=== PATIENT | female | born 1980 | race Caucasian/White ===

== ENCOUNTER 2018-08-14 14:04 | Emergency (ER) | payer BC ==
[2018-08-14] MEDS ORDERED: SODIUM CHLORIDE 0.9% 1,000 ML IV STA (14:31)
[2018-08-14 14:56] LABS: Basophils % (A) 0 %; Eosinophils # (A) 0.1 k/uL (0-0.7); Eosinophils % (A) 1 %; HCT 34.8 % (34.0-46.0); HGB 11.1 gm/dL (11.4-16.0); Lymphocytes # (A) 1.7 k/uL (1.0-4.8); Lymphocytes % (A) 16 %; MCH 25.2 pg (25.0-35.0); MCHC 31.8 g/dL (31.0-37.0); MCV 79.1 fL (80.0-100.0); Mean Platelet Volume 7.4; Monocytes # (A) 0.5 k/uL (0-1.0); Monocytes % (A) 4 %; Neutrophils # (A) 8.4 k/uL (1.3-7.7); Neutrophils % (A) 77 %; Platelet Count 222 k/uL (150-450); RDW 14.3 % (11.5-15.5); WBC 10.9 k/uL (3.8-10.6)
[2018-08-14 15:00] LABS: Appearance,Urine Cloudy (Clear); Bacteria,Urine Rare /hpf; Bilirubin,Urine Negative (Negative); Blood,Urine Negative (Negative); Color,Urine Yellow; Glucose,Urine (UA) Negative (Negative); Ketones,Urine Negative (Negative); Leukocyte Esterase,Urine Small (Negative); Mucus,Urine Rare /hpf; Nitrite,Urine Negative (Negative); Protein,Urine Trace (Negative); RBC,Urine 3 /hpf (0-5); Specific Gravity,Urine 1.024 (1.001-1.035); Squamous Epithelial Cell,Urine 52 /hpf (0-4); Urobilinogen,Urine <2.0 mg/dL (<2.0); WBC,Urine 1 /hpf (0-5)
[2018-08-14 15:01] LABS: ALT 23 U/L (9-52); AST 24 U/L (14-36); Albumin 3.9 g/dL (3.5-5.0); Alkaline Phosphatase 75 U/L (38-126); Amylase 120 U/L (30-110); Anion Gap 7 mmol/L; Blood Urea Nitrogen 13 mg/dL (7-17); Calcium 9.4 mg/dL (8.4-10.2); Carbon Dioxide 23 mmol/L (22-30); Chloride 105 mmol/L (98-107); Glucose 106 mg/dL (74-99); Lipase 123 U/L (23-300); Potassium 4.1 mmol/L (3.5-5.1); Sodium 135 mmol/L (137-145); Total Bilirubin 0.2 mg/dL (0.2-1.3); Total Protein 6.8 g/dL (6.3-8.2)
--- NOTE | 2018-08-14 16:43 | US ---
EXAMINATION TYPE: US kidneys/renal and bladder DATE OF EXAM: 08/14/2018 COMPARISON: NONE CLINICAL HISTORY: Pain. Left pelvic pain radiating to left flank today; 14 weeks via invitro fertilization from eggs harvested from left ovary, prior renal stones, and hematuria per patient EXAM MEASUREMENTS: Right Kidney: 11.0 x 5.4 x 4.3 cm Left Kidney: 11.0 x 5.4 x 4.8 cm Post Void Residual Volume: not assessed on EC patient Right Kidney: prominent renal pelvis at 1.6cm, no hydronephrosis seen Left Kidney: No hydronephrosis or masses seen Bladder: bladder displacement from prominent left ovary is noted Bilateral Jets seen: yes Incidental findings: couple of gallbladder stones are seen within gallbladder; prominent left ovary = 3.0 x 3.2 x 2.8cm with arterial and venous PW Doppler waveforms and color flow is document. Left ova ry assessment is area of patient's pain that began this morning. IMPRESSION: No evidence of renal stone or obstruction. Gallstones are noted.
--- NOTE | 2018-08-14 18:29 | ED ---
General Adult HPI - General Chief complaint: Abdominal Pain Stated complaint: 14 weeks , pelvic pain, L side pain Time Seen by Provider: 08/14/18 14:31 Source: patient, RN notes reviewed Mode of arrival: ambulatory Limitations: no limitations - History of Present Illness Initial comments: 38-year-old female early 14 weeks by IVF presents to the emergency department for a chief complaint of left side pain. Patient states that this started this morning. Patient states it feels like a kidney stone that she has had in the past. Patient is denying any pelvic or abdominal pain. Denies any vaginal bleeding. Denies any dysuria. Patient denies any nausea and vomiting besides her morning sickness that she has had consistently. No diarrhea. No fevers or chills. Patient states she has been tested for gonorrhea and chlamydia which have been negative. Patient denies noticing any gross hematuria. Patient has no other complaints at this time including shortness of breath, chest pain, abdominal pain, nausea or vomiting, headache, or visual changes. - Related Data Home Medications Medication Instructions Recorded Confirmed Ergocalciferol [Vitamin D2] 50,000 unit PO FR 08/14/18 08/14/18 FLUoxetine HCL [PROzac] 20 mg PO DAILY 08/14/18 08/14/18 Ferrous Sulfate [Feosol] 325 mg PO HS 08/14/18 08/14/18 Pnv No.95/Ferrous Fum/Folic AC 1 tab PO DAILY 08/14/18 08/14/18 [ Multivitamin Tablet] Allergies Allergy/AdvReac Type Severity Reaction Status Date / Time No Known Allergies Allergy Verified 08/14/18 14:16 Review of Systems ROS Statement: Those systems with pertinent positive or pertinent negative responses have been documented in the HPI. ROS Other: All systems not noted in ROS Statement are negative. Past Medical History Additional Past Medical History / Comment(s): kidney stones History of Any Multi-Drug Resistant Organisms: None Reported Past Surgical History: Breast Surgery, Tonsillectomy Additional Past Surgical History / Comment(s): breast implants, abdominoplasty Past Psychological History: No Psychological Hx Reported Smoking Status: Never smoker Past Alcohol Use History: None Reported Past Drug Use History: None Reported General Exam Limitations: no limitations General appearance: alert, in no apparent distress Head exam: Present: atraumatic, normocephalic, normal inspection Eye exam: Present: normal appearance, PERRL, EOMI. Absent: scleral icterus, conjunctival injection, periorbital swelling ENT exam: Present: normal exam, mucous membranes moist Neck exam: Present: normal inspection, full ROM. Absent: tenderness, meningismus, lymphadenopathy Respiratory exam: Present: normal lung sounds bilaterally. Absent: respiratory distress, wheezes, rales, rhonchi, stridor Cardiovascular Exam: Present: regular rate, normal rhythm, normal heart sounds. Absent: systolic murmur, diastolic murmur, rubs, gallop, clicks GI/Abdominal exam: Present: soft, normal bowel sounds. Absent: distended, tenderness (No tenderness noted of the abdomen), guarding, rebound, rigid External exam: Present: normal external exam. Absent: erythema, swelling, lesions, lacerations Speculum exam: Present: normal speculum exam, vaginal discharge (Minimal amount of vaginal discharge, likely patient's norm). Absent: erythema, cervical discharge, vaginal bleeding, foreign body, tissue, laceration By manual exam: Present: normal by manual exam. Absent: cervical motion tenderness, adnexal tenderness, adnexal mass, uterine enlargement, uterine tenderness Back exam: Absent: CVA tenderness (R), CVA tenderness (L) Neurological exam: Present: alert, oriented X3, CN II-XII intact Psychiatric exam: Present: normal affect, normal mood Course Vital Signs 08/14/18 08/14/18 14:06 18:59 Temperature 98.4 F 98.2 F Pulse Rate 73 69 Respiratory 18 16 Rate Blood Pressure 134/88 125/68 O2 Sat by Pulse 100 100 Oximetry Medical Decision Making - Medical Decision Making 38-year-old female currently 14 weeks by IVF presents to the emergency department for a chief complaint of left side and back pain. Patient states this started this morning. Patient denies any pelvic or abdominal pain. Denies any vaginal bleeding or vaginal discharge. On exam patient does not have any abdominal tenderness. No CVA tenderness. No adnexal tenderness on pelvic. Patient does have a confirmed intrauterine . Patient again stresses that this does feel like a kidney stone which she has had before. Patient has had a confirmed intrauterine and not having any pelvic pain we did decide to do an ultrasound KUB and then obtain heart tones. heart tones were obtained at 160. CBC shows a white blood cell count 10.9, likely reactive. CMP unremarkable. Urine shows 3 red blood cells. No evidence of in fection. It does show 52 squamous cells, likely skin contaminant. Ultrasound shows no hydronephrosis or masses seen of the left ovary. There is an incidental finding of a prominent left ovary of 3.0 x 3.2 x 2.8 cm with Doppler. At this time Dr. Rees Spoke with Dr. Anglin. At this time Dr. Anglin recommends discharge home. Patient will follow up with her in the next one to 2 days and return here if she has any worsening symptoms. - Lab Data Result diagrams: 08/14/18 14:44 08/14/18 14:44 Lab Results 08/14/18 08/14/18 08/14/18 Range/Units 14:44 14:44 14:44 WBC 10.9 H (3.8-10.6) k/uL RBC 4.40 (3.80-5.40) m/uL Hgb 11.1 L (11.4-16.0) gm/dL Hct 34.8 (34.0-46.0) % MCV 79.1 L (80.0-100.0) fL MCH 25.2 (25.0-35.0) pg MCHC 31.8 (31.0-37.0) g/dL RDW 14.3 (11.5-15.5) % Plt Count 222 (150-450) k/uL Neutrophils % 77 % Lymphocytes % 16 % Monocytes % 4 % Eosinophils % 1 % Basophils % 0 % Neutrophils # 8.4 H (1.3-7.7) k/uL Lymphocytes # 1.7 (1.0-4.8) k/uL Monocytes # 0.5 (0-1.0) k/uL Eosinophils # 0.1 (0-0.7) k/uL Basophils # 0.0 (0-0.2) k/uL Sodium 135 L (137-145) mmol/L Potassium 4.1 (3.5-5.1) mmol/L Chloride 105 (98-107) mmol/L Carbon Dioxide 23 (22-30) mmol/L Anion Gap 7 mmol/L BUN 13 (7-17) mg/dL Creatinine 0.53 (0.52-1.04) mg/dL Est GFR (CKD-EPI)AfAm >90 (>60 ml/min/1.73 sqM) Est GFR (CKD-EPI)NonAf >90 (>60 ml/min/1.73 sqM) Glucose 106 H (74-99) mg/dL Calcium 9.4 (8.4-10.2) mg/dL Total Bilirubin 0.2 (0.2-1.3) mg/dL AST 24 (14-36) U/L ALT 23 (9-52) U/L Alkaline Phosphatase 75 (38-126) U/L Total Protein 6.8 (6.3-8.2) g/dL Albumin 3.9 (3.5-5.0) g/dL Amylase 120 H (30-110) U/L Lipase 123 (23-300) U/L Urine Color Urine Appearance (Clear) Urine pH (5.0-8.0) Ur Specific [place] (1.001-1.035) Urine Protein (Negative) Urine Glucose (UA) (Negative) Urine Ketones (Negative) Urine Blood (Negative) Urine Nitrite (Negative) Urine Bilirubin (Negative) Urine Urobilinogen (<2.0) mg/dL Ur Leukocyte Esterase (Negative) Urine RBC (0-5) /hpf Urine WBC (0-5) /hpf Ur Squamous Epith Cells (0-4) /hpf Urine Bacteria (None) /hpf Urine Mucus (None) /hpf Urine HCG, Qual (Not Detectd) Blood Type O Positive Blood Type Recheck [facility] ONLY 08/14/18 08/14/18 Range/Units 14:44 14:44 WBC (3.8-10.6) k/uL RBC (3.80-5.40) m/uL Hgb (11.4-16.0) gm/dL Hct (34.0-46.0) % MCV (80.0-100.0) fL MCH (25.0-35.0) pg MCHC (31.0-37.0) g/dL RDW (11.5-15.5) % Plt Count (150-450) k/uL Neutrophils % % Lymphocytes % % Monocytes % % Eosinophils % % Basophils % % Neutrophils # (1.3-7.7) k/uL Lymphocytes # (1.0-4.8) k/uL Monocytes # (0-1.0) k/uL Eosinophils # (0-0.7) k/uL Basophils # (0-0.2) k/uL Sodium (137-145) mmol/L Potassium (3.5-5.1) mmol/L Chloride (98-107) mmol/L Carbon Dioxide (22-30) mmol/L Anion Gap mmol/L BUN (7-17) mg/dL Creatinine (0.52-1.04) mg/dL Est GFR (CKD-EPI)AfAm (>60 ml/min/1.73 sqM) Est GFR (CKD-EPI)NonAf (>60 ml/min/1.73 sqM) Glucose (74-99) mg/dL Calcium (8.4-10.2) mg/dL Total Bilirubin (0.2-1.3) mg/dL AST (14-36) U/L ALT (9-52) U/L Alkaline Phosphatase (38-126) U/L Total Protein (6.3-8.2) g/dL Albumin (3.5-5.0) g/dL Amylase (30-110) U/L Lipase (23-300) U/L Urine Color Yellow Urine Appearance Cloudy H (Clear) Urine pH 6.0 (5.0-8.0) Ur Specific [place] 1.024 (1.001-1.035) Urine Protein Trace H (Negative) Urine Glucose (UA) Negative (Negative) Urine Ketones Negative (Negative) Urine Blood Negative (Negative) Urine Nitrite Negative (Negative) Urine Bilirubin Negative (Negative) Urine Urobilinogen <2.0 (<2.0) mg/dL Ur Leukocyte Esterase Small H (Negative) Urine RBC 3 (0-5) /hpf Urine WBC 1 (0-5) /hpf Ur Squamous Epith Cells 52 H (0-4) /hpf Urine Bacteria Rare H (None) /hpf Urine Mucus Rare H (None) /hpf Urine HCG, Qual Detected (Not Detectd) Blood Type Blood Type Recheck Disposition Clinical Impression: Left flank pain Disposition: HOME SELF-CARE Condition: Good Instructions (If sedation given, give patient instructions): Flank Pain (ED) Additional Instructions: Please follow up with [employer] in one to 2 days. If you're having any worsening symptoms and return here to the emergency department. Is patient prescribed a controlled substance at d/c from ED?: No Referrals: Tevin Moctezuma MD [Primary Care Provider] - 1-2 days Hayde Anglin MD [STAFF PHYSICIAN] - 1-2 days Time of Disposition: 19:02
[2018-08-14 19:00] VITALS: BP 125/68; PULSE 69; RESP 16; TEMP 98.2
== END 2018-08-14 19:17 | disposition home or self-care (01) ==
LOC: EC 14:04
DX: O99.89 Other specified diseases and conditions complicating pregnancy, childbirth and the puerperium (principal); R10.9 Unspecified abdominal pain; Z3A.14 14 weeks gestation of pregnancy; Z79.899 Other long term (current) drug therapy
CPT/HCPCS: 36415; 76770; 80053; 81001; 81025; 82150; 83690; 85025; 86900; 86901; 96360; 99284

== ENCOUNTER 2018-08-16 11:05 | Emergency (ER) | payer BC ==
[2018-08-16 11:13] VITALS: RESP 18
[2018-08-16] MEDS ORDERED: SODIUM CHLORIDE 0.9% 500 ML 500 ML IV ONE (11:16)
--- NOTE | 2018-08-16 12:02 | ED ---
Female Urogenital HPI - General Chief complaint: Vaginal Bleeding Stated complaint: Vaginal bleeding 14 wks Time Seen by Provider: 08/16/18 11:14 Source: patient Mode of arrival: ambulatory Limitations: no limitations - History of Present Illness Initial comments: 38-year-old female 14 weeks A4 presents today with chief complaint of vaginal bleeding she states she has had a gush of blood for the past 2 days. Patient states it was reinforcing rod layer pink yesterday and more dark red today. Patient states she has had some lower abdominal cramping. Patient denies any vomiting diarrhea fever chills night sweats back pain headache dizziness leg swelling or any other associated symptoms. Patient denies dysuria urgency frequency or hematuria. Upon arrival patient appears well no signs of acute distress. Heart rate within normal limits. Hemodynamically stable. Patient is concerned she was miscarrying and that is why she presents today. Everton aiken did contact her RN ADMIT Dr. Anglin yesterday who stated patient should have pelvic rest and avoid sex. Patient's remaining review of system negative - Related Data Home Medications Medication Instructions Recorded Confirmed Ergocalciferol [Vitamin D2] 50,000 unit PO FR 08/14/18 08/14/18 FLUoxetine HCL [PROzac] 20 mg PO DAILY 08/14/18 08/14/18 Ferrous Sulfate [Feosol] 325 mg PO HS 08/14/18 08/14/18 Pnv No.95/Ferrous Fum/Folic AC 1 tab PO DAILY 08/14/18 08/14/18 [ Multivitamin Tablet] Allergies Allergy/AdvReac Type Severity Reaction Status Date / Time No Known Allergies Allergy Verified 08/16/18 11:13 Review of Systems ROS Statement: Those systems with pertinent positive or pertinent negative responses have been documented in the HPI. ROS Other: All systems not noted in ROS Statement are negative. Past Medical History Additional Past Medical History / Comment(s): kidney stones History of Any Multi-Drug Resistant Organisms: None Reported Past Surgical History: Breast Surgery, Tonsillectomy Additional Past Surgical History / Comment(s): breast implants, abdominoplasty Past Psychological History: No Psychological Hx Reported Smoking Status: Never smoker Past Alcohol Use History: None Reported Past Drug Use History: None Reported General Exam - General Exam Comments Initial Comments: General: The patient is awake and alert, in no distress, and does not appear acutely ill. Eye: Pupils are equal, round and reactive to light, extra-ocular movements are intact. No nystagmus. There is normal conjunctiva bilaterally. No signs of icterus. Ears, nose, mouth and throat: There are moist mucous membranes and no oral lesions. Neck: The neck is supple, there is no tenderness or JVD. Cardiovascular: There is a regular rate and rhythm. No murmur, rub or gallop is appreciated. Respiratory: Lungs are clear to auscultation, respirations are non-labored, breath sounds are equal. No wheezes, stridor, rales, or rhonchi. Gastrointestinal: Soft, non-distended, non-tender abdomen without masses or organomegaly noted. There is no rebound or guarding present. No CVA tenderness. Bowel sounds are unremarkable. Pelvic exam: No external lesions. Vaginal mucosa pink well rugated. Cervical os is closed. There is blood coming from the eyes. Reading color no significant heavy bleeding. No vaginal discharge or odor. No cervical motion or adnexal tenderness. Musculoskeletal: Normal ROM, no tenderness. Strength 5/5. Sensation intact. Pulses equal bilaterally 2+. Neurological: A&O x 3. CN II-XII intact, There are no obvious motor or sensory deficits. Coordination appears grossly intact. Speech is normal. Skin: Skin is warm and dry and no rashes or lesions are noted. Psychiatric: Cooperative, appropriate mood & affect, normal judgment. Limitations: no limitations Course Vital Signs 08/16/18 08/16/18 11:10 13:44 Temperature 98.9 F 98.1 F Pulse Rate 79 71 Respiratory 18 18 Rate Blood Pressure 121/76 140/93 O2 Sat by Pulse 97 100 Oximetry Medical Decision Making - Medical Decision Making Very well-appearing 38-year-old female 14 weeks presents today for chief complaint of bleeding in . Patient a positive. She has no significant tenderness on examination. Os closed. Patient hemodynamically stable. Patient's ultrasound revealed a viable intrauterine complicated process at this time however there is possibility of a subchorionic hemorrhage versus a lobulated uterine fibroid. At this time I feel patient is stable for discharge with diagnosis of threatened miscarriage and return for any heavy vaginal bleeding or other concerning signs or symptoms. I discussed the case with a provider Dr. Oliveros who is agreeable care plan & discharge today. All questions were answered to the best my ability and patient states she will follow-up with her RN ADMIT on outpatient basis and continue to follow pelvic rest instruction and avoid sex. - Lab Data Result diagrams: 08/16/18 11:27 08/16/18 11:27 Lab Results 08/16/18 08/16/18 08/16/18 Range/Units 11:27 11:27 11:27 WBC 9.2 (3.8-10.6) k/uL RBC 4.20 (3.80-5.40) m/uL Hgb 10.2 L (11.4-16.0) gm/dL Hct 33.1 L (34.0-46.0) % MCV 78.8 L (80.0-100.0) fL MCH 24.4 L (25.0-35.0) pg MCHC 30.9 L (31.0-37.0) g/dL RDW 14.8 (11.5-15.5) % Plt Count 197 (150-450) k/uL Neutrophils % 78 % Lymphocytes % 15 % Monocytes % 5 % Eosinophils % 1 % Basophils % 0 % Neutrophils # 7.2 (1.3-7.7) k/uL Lymphocytes # 1.4 (1.0-4.8) k/uL Monocytes # 0.4 (0-1.0) k/uL Eosinophils # 0.1 (0-0.7) k/uL Basophils # 0.0 (0-0.2) k/uL Sodium 136 L (137-145) mmol/L Potassium 4.5 (3.5-5.1) mmol/L Chloride 107 (98-107) mmol/L Carbon Dioxide 22 (22-30) mmol/L Anion Gap 7 mmol/L BUN 13 (7-17) mg/dL Creatinine 0.51 L (0.52-1.04) mg/dL Est GFR (CKD-EPI)AfAm >90 (>60 ml/min/1.73 sqM) Est GFR (CKD-EPI)NonAf >90 (>60 ml/min/1.73 sqM) Glucose 77 (74-99) mg/dL Calcium 9.3 (8.4-10.2) mg/dL Total Bilirubin 0.2 (0.2-1.3) mg/dL AST 24 (14-36) U/L ALT 22 (9-52) U/L Alkaline Phosphatase 62 (38-126) U/L Total Protein 6.3 (6.3-8.2) g/dL Albumin 3.6 (3.5-5.0) g/dL HCG, Quant 30538.2 mIU/mL Blood Type O Positive Blood Type Recheck No Antibody Screen NEGATIVE Spec Expiration Date 08/19/20182326 Disposition Clinical Impression: Threatened miscarriage, Abdominal cramping Disposition: HOME SELF-CARE Condition: Good Instructions (If sedation given, give patient instructions): Threatened Miscar riage (ED) Additional Instructions: Please use medication as discussed. Please follow-up with RN ADMIT as discussed. No sex, pelvic rest. Please return to emergency room if the symptoms increase or worsen or for any other concerns. Is patient prescribed a controlled substance at d/c from ED?: No Referrals: Tevin Moctezuma MD [Primary Care Provider] - 1-2 days Hayde Anglin MD [STAFF PHYSICIAN] - 1-2 days Time of Disposition: 13:34
[2018-08-16 12:17] LABS: Basophils % (A) 0 %; Eosinophils # (A) 0.1 k/uL (0-0.7); Eosinophils % (A) 1 %; HCT 33.1 % (34.0-46.0); HGB 10.2 gm/dL (11.4-16.0); Lymphocytes # (A) 1.4 k/uL (1.0-4.8); Lymphocytes % (A) 15 %; MCH 24.4 pg (25.0-35.0); MCHC 30.9 g/dL (31.0-37.0); MCV 78.8 fL (80.0-100.0); Mean Platelet Volume 7.6; Monocytes # (A) 0.4 k/uL (0-1.0); Monocytes % (A) 5 %; Neutrophils # (A) 7.2 k/uL (1.3-7.7); Neutrophils % (A) 78 %; Platelet Count 197 k/uL (150-450); RDW 14.8 % (11.5-15.5); WBC 9.2 k/uL (3.8-10.6)
[2018-08-16 12:20] LABS: ALT 22 U/L (9-52); AST 24 U/L (14-36); Albumin 3.6 g/dL (3.5-5.0); Alkaline Phosphatase 62 U/L (38-126); Anion Gap 7 mmol/L; Blood Urea Nitrogen 13 mg/dL (7-17); Calcium 9.3 mg/dL (8.4-10.2); Carbon Dioxide 22 mmol/L (22-30); Chloride 107 mmol/L (98-107); Glucose 77 mg/dL (74-99); Potassium 4.5 mmol/L (3.5-5.1); Sodium 136 mmol/L (137-145); Total Bilirubin 0.2 mg/dL (0.2-1.3); Total Protein 6.3 g/dL (6.3-8.2)
--- NOTE | 2018-08-16 13:12 | US ---
EXAMINATION TYPE: Transabdominal DATE OF EXAM: 08/16/2018 12:36 PM COMPARISON: NONE CLINICAL HISTORY: pain. IVF . Spotting. Pelvic pain. EXAM PERFORMED: Transabdominal (TA) EXAM MEASUREMENTS: GESTATIONAL AGE / DATING Physician Established: (14 weeks/0 days) EDC: 02/14/2019 Dates by Current Scan for: (13 weeks/4 days) EDC: 02/17/2019 MATERNAL ANATOMY Uterus: 15.4 x 10.8 x 7.3 cm Right Ovary: 2.9 x 1.8 x 1.8 cm Left Ovary: 3.0 x 2.1 x 2.0 cm Post CDS / Adnexa: no free fluid Presence of free fluid: no Presence of corpus luteal cyst: no Presence of subchorionic bleed: lesion seen adjacent to GS in fundal region - 1.8 x 1.4 x 0.7 cm GESTATION / SURVEY CRL: 7.5 (13 weeks/4 days) MSD: seen, not measured Yolk Sac (normal less than 6mm): not visualized Heart Rate: 159 bpm Rhythm: Normal IUP: Viable IUP Date of LMP: Unknown, Beta HcG (if available): Not available at this time Single live IUP measuring 13 weeks 4 days. Anterior pedunculated lesion seen mid uterus- 2.6 x 2.8 x 2.4 cm IMPRESSION: VIABLE INTRAUTERINE GESTATION WITH A GESTATIONAL AGE OF 13 WEEKS 4 DAYS +/- 7 DAYS. ESTIMATED DATE OF CONFINEMENT BASED ON THIS EXAMINATION IS 02/17/2019. PLEASE NOTE THE PRESENCE OF A PEDUNCULATED LESION ADJACENT TO THE GESTATIONAL SAC. THIS MAY REPRESENT A PEDUNCULATED FIBROID. THIS MEASURES 2.6 X 2.8 X 2.4 CM.
[2018-08-16 13:30] LABS: HCG,Quantitative Serum 70647.2 mIU/mL
[2018-08-16 13:51] VITALS: BP 140/93; PULSE 71; TEMP 98.1
[2018-08-16 14:02] LABS: Amorphous Sediment,Urine Rare /hpf; Appearance,Urine Clear (Clear); Bilirubin,Urine Negative (Negative); Blood,Urine Moderate (Negative); Color,Urine Light Yellow; Glucose,Urine (UA) Negative (Negative); Ketones,Urine Negative (Negative); Leukocyte Esterase,Urine Negative (Negative); Mucus,Urine Rare /hpf; Nitrite,Urine Negative (Negative); PH, Urine 6.5 (5.0-8.0); Protein,Urine Negative (Negative); Specific Gravity,Urine 1.006 (1.001-1.035); Squamous Epithelial Cell,Urine 2 /hpf (0-4); Urobilinogen,Urine <2.0 mg/dL (<2.0); WBC,Urine 1 /hpf (0-5)
== END 2018-08-16 13:45 | disposition home or self-care (01) ==
LOC: EC 11:05
DX: O20.0 Threatened abortion (principal); O26.891 Other specified pregnancy related conditions, first trimester; R10.9 Unspecified abdominal pain; Z3A.13 13 weeks gestation of pregnancy; Z79.899 Other long term (current) drug therapy
CPT/HCPCS: 36415; 76801; 80053; 81001; 84702; 85025; 86850; 86900; 86901; 87070; 87205; 87491; 87591; 87808; 96360; 96361; 99284

== ENCOUNTER 2018-12-09 20:57 | Outpatient (CLI) | payer BC ==
[2018-12-09 22:45] VITALS: BP 131/69; PULSE 83; RESP 16; TEMP 98.4
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
== END 2018-12-09 22:13 | disposition home or self-care (01) ==
LOC: FBPOP 20:57
PROVIDERS: ATTEND Obstetrics & Gynecology Obstetrics
DX: O99.353 Diseases of the nervous system complicating pregnancy, third trimester (principal); G89.11 Acute pain due to trauma; Z3A.30 30 weeks gestation of pregnancy
CPT/HCPCS: 59025; 99213

== ENCOUNTER 2019-01-17 20:35 | Outpatient (CLI) | payer BC ==
[2019-01-17 21:48] VITALS: BP 131/61; PULSE 78; RESP 16; TEMP 96.4
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
== END 2019-01-17 21:40 | disposition home or self-care (01) ==
LOC: FBPOP 20:35
PROVIDERS: ATTEND Obstetrics & Gynecology Obstetrics
DX: O36.8130 Decreased fetal movements, third trimester, not applicable or unspecified (principal); Z3A.36 36 weeks gestation of pregnancy
CPT/HCPCS: 59025; 99213

== ENCOUNTER 2019-02-14 21:16 | Outpatient (CLI) | payer BC ==
[2019-02-14 22:36] VITALS: BP 138/97; PULSE 100; RESP 18; TEMP 96.1
[2019-02-14 22:52] LABS: Appearance,Urine Cloudy (Clear); Bilirubin,Urine Negative (Negative); Blood,Urine Negative (Negative); Color,Urine Yellow; Glucose,Urine (UA) Negative (Negative); Ketones,Urine Trace (Negative); Leukocyte Esterase,Urine Negative (Negative); Nitrite,Urine Negative (Negative); Protein,Urine 1+ (Negative); Specific Gravity,Urine 1.025 (1.001-1.035)
[2019-02-14 23:15] LABS: Squamous Epithelial Cell,Urine 10 /hpf (0-4); WBC,Urine 2 /hpf (0-5)
[2019-02-14 23:16] LABS: Bacteria,Urine Few /hpf
--- NOTE | 2019-03-01 16:36 | P.MSEPDOC ---
Presenting Problems - Arrival Data Date of Arrival on Unit: 02/14/19 Time of Arrival on Unit: 21:51 Mode of Transport: Ambulatory - Complaint OB-Reason for Admission/Chief Complaint: Rule Out SROM Comment: pt arrives to triage for possible SROM Medical History - Information : 5 Para: 0 Term: 0 : 0 Abortions: Spontaneous or Elective: 4 Number of Living Children: 0 - Gestational Age Gestational Age by LOUIS (wks/days): 40 Weeks and 0 Days Review of Systems - Review of Systems Constitutional: No problems Breast: No problems ENT: No problems Cardiovascular: No problems Respiratory: No problems Gastrointestinal: No problems Genitourinary: No problems Musculoskeletal: No problems Neurological: No problems Skin: No problems Vital Signs - Temperature Temperature: 96.1 F Temperature Source: Temporal Artery Scan - Pulse Right Brachial Pulse Rate: 100 Pulse Assessment Method: Automatic Cuff - Respirations Respiratory Rate: 18 Oxygen Delivery Method: Room Air O2 Sat by Pulse Oximetry: 97 - Blood Pressure Right Arm Blood Pressure: 138/97 Blood Pressure Mean: 110 Blood Pressure Source: Automatic Cuff Medical Screen Scoring (Pre) - Cervical Exam Dilation: 1-3 cm = 1 Effacement: More than 50% = 2 Membranes: Intact - Uterine Contractions Frequency: N/A Duration: N/A Intensity: N/A - Maternal Vital Signs Maternal Temperature: N/A Maternal Blood Pressure: Diastolic > 89 = 1 Signs of Preeclampsia: Headache = 1 Maternal Respirations: N/A - Maternal Trauma Maternal Trauma: N/A - Assessment - Baby A Baseline FHR: 140 Heart Rate - NICHD Category: Category I (Normal) = 0 NST: Reactive Position: N/A Station: N/A - Total Score - Baby A Total Score - Baby A: 5 - Total Score - Baby B Total Score - Baby B: 5 - Total Score - Baby C Total Score - Baby C: 5 - Level of Risk - Baby A Level of Risk - Baby A: Low (0-5) - Level of Risk - Baby B Level of Risk - Baby B: Low (0-5) - Level of Risk - Baby C Level of Risk - Baby C: Low (0-5) Physician Notification (Pre) - Physician Notified Physician Notified Date: 02/14/19 Physician Notified Time: 21:51 New Order Received: Yes - Notification Comment Comment: get reactive nst, then discharge pt home, has [facility] with Dr. Anglin on Friday, bp before discharge was 120/79 Disposition - Disposition OB Disposition: Triage, Discharge to home, Written follow up instructions kanwal soto Discharge Date: 02/14/19 Discharge Time: 22:30 I agree with the RN Medical Screening Exam: Yes Risk & Benefit of care provided described in d/c instruction: Yes Diagnosis: FALSE LABOR AT OR AFTER 37 COMPLETED WEEKS OF GESTATION
== END 2019-02-14 22:30 | disposition home or self-care (01) ==
LOC: FBPOP 21:16
PROVIDERS: ATTEND Obstetrics & Gynecology Obstetrics
DX: O47.1 False labor at or after 37 completed weeks of gestation (principal); Z3A.40 40 weeks gestation of pregnancy
CPT/HCPCS: 59025; 81001; 84112; 99213

== ENCOUNTER 2019-02-17 06:14 | Inpatient (IN) | payer BC ==
[2019-02-17] MEDS ORDERED: LIDOCAINE 0.5% (PF) 5 MG/ML (50 ML SDV) SQ PRN (06:28)
[2019-02-17] MEDS ORDERED: OXYTOCIN 10 UNIT/ML 1 ML VIAL IM PRN (06:28)
[2019-02-17] MEDS ORDERED: METHYLERGONOVINE 0.2 MG/ML 1 ML AMP IM PRN (06:28)
[2019-02-17] MEDS ORDERED: CARBOPROST TROMETHAMINE 250 MCG/ML 1 ML AMP IM PRN (06:28)
[2019-02-17] MEDS ORDERED: TERBUTALINE 1 MG/ML VIAL SQ PRN (06:28)
[2019-02-17] MEDS ORDERED: OXYTOCIN 30 UNITS/500 ML NS 30 UNIT in SALINE 1 500ML.BAG IV SCH (06:30)
[2019-02-17 06:43] VITALS: BMI 44.8
[2019-02-17] MEDS: LACTATED RINGERS 1,000 ML IV SCH ×3 (06:45→15:27)
[2019-02-17 07:23] LABS: Anisocytosis Slight; Basophils % (A) 0 %; Eosinophils # (A) 0.1 k/uL (0-0.7); Eosinophils % (A) 1 %; HCT 28.6 % (34.0-46.0); HGB 8.9 gm/dL (11.4-16.0); Hypochromasia Marked; Lymphocytes # (A) 1.8 k/uL (1.0-4.8); Lymphocytes % (A) 15 %; MCH 22.5 pg (25.0-35.0); MCHC 31.2 g/dL (31.0-37.0); MCV 72.3 fL (80.0-100.0); Mean Platelet Volume 7.5; Microcytosis Moderate; Monocytes # (A) 0.6 k/uL (0-1.0); Monocytes % (A) 5 %; Neutrophils # (A) 9.4 k/uL (1.3-7.7); Neutrophils % (A) 77 %; Platelet Count 295 k/uL (150-450); Poikilocytosis Moderate; RBC 3.96 m/uL (3.80-5.40); RDW 16.2 % (11.5-15.5); WBC 12.1 k/uL (3.8-10.6)
--- NOTE | 2019-02-17 08:01 | P.HPOB ---
History of Present Illness H&P Date: 02/17/19 This is a 38-year-old white female 5 para 0040 EDC 02/14/2019 at 40-3/7 weeks' gestation. Patient presents for induction for postdates . She denies vaginal bleeding or fluid leakage. Fetus is been active throughout the . Past medical history is significant for positive MTHFR , anxiety, anemia, obesity, advanced maternal age, asthma, fibroid uterus. Past surgical history breast augmentation, gastric bypass, hysteroscopy, IVF, tonsillectomy, abdominoplasty. Current medications Lexapro 20 mg daily, vitamin daily, baby aspirin daily. ALLERGIES none known. Family history is unremarkable. Reproductive history significant for missed AB multiple times. Social history patient is single, she is never been a smoker, she denies alcohol or drug use. history is significant for blood type O positive, rubella status immune. VDRL testing, urine culture, hepatitis B surface antigen, HIV testing, gonorrhea and chlamydia cultures, group B strep cultures all negative. One-hour Glucola 144, 3 hour GTT within normal limits. On exam this is a pleasant elderly female, 5 foot 4 inches, 261 pounds, blood pressure 131/74. General physical exam is within normal limits. heart rate is consistent with reactive NST. Uterine contractions are occurring approximately every 6-10 minutes apart spontaneously. Cervix is 2 cm dilated, 70% effaced, -2 station, vertex presentation, soft, anterior. Artificial amniorrhexis reveals meconium-stained fluid. Impression: 40-3/7 weeks intrauterine , advanced maternal age, maternal obesity, history of asthma and anxiety, meconium-stained fluid. Plan: Oxytocin per hospital protocol. Close maternal and surveillance. Anticipate normal spontaneous vaginal delivery. Review of Systems Constitutional: Reports as per HPI Past Medical History Past Medical History: Asthma Additional Past Medical History / Comment(s): kidney stones History of Any Multi-Drug Resistant Organisms: None Reported Past Surgical History: Breast Surgery, Tonsillectomy Additional Past Surgical History / Comment(s): breast implants, abdominoplasty Past Anesthesia/Blood Transfusion Reactions: No Reported Reaction Past Psychological History: No Psychological Hx Reported Smoking Status: Never smoker Past Alcohol Use History: None Reported Past Drug Use History: None Reported - Past Family History Father Family Medical History: Diabetes Mellitus Medications and Allergies Home Medications Medication Instructions Recorded Confirmed Type Ergocalciferol [Vitamin D2] 50,000 unit PO FR 08/14/18 02/17/19 History Pnv No.95/Ferrous Fum/Folic AC 1 tab PO DAILY 08/14/18 02/17/19 History [ Multivitamin Tablet] Escitalopram [Lexapro] 1 tab PO DAILY 10/13/18 02/17/19 History Aspirin [Children's Aspirin] 1 tab PO ONCE 01/17/19 02/17/19 History Allergies Allergy/AdvReac Type Severity Reaction Status Date / Time No Known Allergies Allergy Verified 02/14/19 21:20 Exam Vital Signs Temp Pulse Resp BP Pulse Ox 02/17/19 06:20 96.4 F L 80 16 131/74 98 Intake and Output 02/16/19 02/17/19 02/17/19 22:59 06:59 14:59 Other: Weight 118.388 kg See dictation under HPI please Results Result Diagrams: 02/17/19 06:45 Abnormal Lab Results - Last 24 Hours (Table) 02/17/19 Range/Units 06:45 WBC 12.1 H (3.8-10.6) k/uL Hgb 8.9 L (11.4-16.0) gm/dL Hct 28.6 L (34.0-46.0) % MCV 72.3 L (80.0-100.0) fL MCH 22.5 L (25.0-35.0) pg RDW 16.2 H (11.5-15.5) % Neutrophils # 9.4 H (1.3-7.7) k/uL Assessment and Plan Assessment: 40-3/7 weeks intrauterine , meconium-stained fluid, maternal obesity, asthma, maternal anxiety. Plan: Oxytocin per hospital protocol. Close maternal and surveillance. Anticipate normal spontaneous vaginal delivery. Time with Patient: Less than 30
[2019-02-17] MEDS ORDERED: fentaNYL (PF) 50 MCG/ML 5 ML AMP ONE (14:29)
[2019-02-17] MEDS ORDERED: SODIUM CHLORIDE 0.9% 100 ML BAG ONE (14:29)
[2019-02-17] MEDS ORDERED: ROPIVACAINE 5MG/ML 20ML VIAL ONE (14:29)
[2019-02-17] MEDS ORDERED: ceFAZolin 3 GM in SODIUM CHLORIDE 0.9% 100 ML IVPB ONE (15:49)
[2019-02-17] MEDS ORDERED: CITRIC ACID-SODIUM CITRATE 15 ML CUP PO ONE (15:49)
[2019-02-17] MEDS ORDERED: KETOROLAC 30 MG/ML 1 ML VIAL ONE (16:10)
[2019-02-17] MEDS ORDERED: fentaNYL (PF) 50 MCG/ML 2 ML AMP ONE (16:10)
[2019-02-17] MEDS ORDERED: NALBUPHINE 10 MG/ML (1 ML AMP) ONE (16:10)
[2019-02-17] MEDS ORDERED: MORPHINE SULFATE (PF) 0.3 MG/0.3 ML SYR ONE (16:10)
[2019-02-17] MEDS ORDERED: LACTATED RINGERS 1,000 ML BAG IV ONE (16:10)
[2019-02-17] MEDS ORDERED: OXYTOCIN 10 UNIT/ML 1 ML VIAL ONE (16:10)
[2019-02-17] MEDS ORDERED: LIDOCAINE 2% (PF) 20 MG/ML 5 ML VIAL ONE (16:10)
[2019-02-17] MEDS ORDERED: ONDANSETRON 4 MG/2 ML VIAL IVP PRN (17:05)
[2019-02-17] MEDS ORDERED: NALOXONE 0.4 MG/ML 1 ML VIAL IV PRN (17:05)
[2019-02-17] MEDS ORDERED: ACETAMINOPHEN TAB 325 MG TAB PO PRN (17:05)
[2019-02-17] MEDS ORDERED: IBUPROFEN 600 MG TAB PO PRN (17:05)
[2019-02-17] MEDS ORDERED: diphenhydrAMINE 25 MG CAP PO PRN (17:05)
[2019-02-17] MEDS ORDERED: diphenhydrAMINE 50 MG CAP PO PRN (17:05)
[2019-02-17] MEDS ORDERED: diphenhydrAMINE 50 MG/ML 1 ML VIAL IVP PRN ×2 (17:05)
[2019-02-17] MEDS ORDERED: METOCLOPRAMIDE 5 MG/ML 2 ML VIAL IVP PRN (17:05)
[2019-02-17] MEDS ORDERED: KETOROLAC 30 MG/ML 1 ML VIAL IVP PRN (17:05)
[2019-02-17] MEDS ORDERED: SIMETHICONE 80 MG CHEWABLE PO PRN (17:05)
[2019-02-17] MEDS ORDERED: ZOLPIDEM 5 MG TAB PO PRN (17:05)
--- NOTE | 2019-02-17 17:05 | P.OP ---
Date of Procedure: 02/17/19 Preoperative Diagnosis: Advanced maternal age, 40-3/7 weeks' gestation, meconium-stained fluid, arrest of dilation. Postoperative Diagnosis: Left occiput transverse position, fibroid uterus, pelvic adhesions, liveborn female , nuchal cord 1 Procedure(s) Performed: Primary low transverse section Anesthesia: epidural Surgeon: Hayde Anglin Bed Setter #1: Giana Singh Estimated Blood Loss (ml): 700 IV fluids (ml): 500 Urine output (ml): 100 Pathology: other (Placenta) Condition: stable Disposition: PACU Operative Findings: Liveborn female , left occiput transverse position, nuchal cord 1. Fibroid uterus, pelvic adhesions. Description of Procedure: No cervical change was noted after many hours of Pitocin running at 26 and use. After thorough discussion, decision was made to proceed with primary low transverse section. 3 g of Kefzol are given. The epidural previously placed in labor is "topped off". Patient's brought back to the operating room. Eid catheter placed to direct drainage. The abdomen is prepped and draped in usual sterile fashion. Vaginal prep was performed as well. The appropriate timeout is performed to assure proper patient and procedural identification. A low transverse skin incision is made in this is carried down through the subcutaneous tissue to the fascia. Fascia is isolated, scored, and extended bilaterally with curved Min scissors. Peritoneum is next identified and incised, there is no bowel or bladder involvement. Bladder blade is placed over the dome of the bladder and at all times the bladder is Well from the operative field to avoid bladder and/or ureteral injury. A low transverse uterine incision is made in this is extended with blunt dissection. The infant's head is delivered in the left occiput transverse position. The oropharynx, nasopharynx, and external nares are thoroughly suctioned with the bulb suction. There is a nuchal cord 1 that is reduced. Patient is officially delivered of a liveborn female at 1625 hours. Umbilical cord is doubly clamped and ligated, she is handed to waiting nurses for evaluation where scores of 8 and 9 at one and 5 minutes respectively are given. The placenta delivers manually, it is noted to be darkly meconium stained and sent to pathology. There is a 3 vessel cord, cord blood is sent to the lab. The uterus is then swept clean with a sterile sponge to avoid any retained products of conception. It is externalized and massaged. Oxytocin is given. Uterus is closed in a two-step fashion, first layer running locking with 0 Vicryl. Second layer imbricated with 0 Vicryl. Excellent reapproximation and hemostasis is noted. Bilateral tubes and ovaries are inspected, there are filmy pelvic adhesions involving both ovaries and tubes to the posterior uterine segment. These are carefully taken down with electrocautery. Otherwise the ovaries appear normal to inspection. There are several small fibroids noted in the uterus. Bilateral gutters are inspected and cleaned. The uterus is gently placed back into the pelvis. Eid is noted to be draining clear urine. Peritoneum is allowed to close by secondary intention. Fascia is closed in a running stitch of 0 Vicryl with over ligation in the midline. Subcutaneous tissue was generously irrigated, clean and dry. It is reapproximated with 3-0 Vicryl in a running fashion. 4-0 undyed Vicryl issues for final skin closure. Steri-Strips and Mastisol are applied to the wound along with a dressing. All sponge needle and enhancement counts are correct at the end the procedure. Fundus is firm and in the midline, symmetric and 18 week size. Total estimated blood loss 700 mL, fluid replacement 500 mL, urine output 100 mL's. Patient is brought back to recovery room in very good condition with stable vital signs including blood pressure 105/61, pulse 78. Patient and her family are allowed to begin the bonding experience in the LDR. Infant weighs 3540 g or 7 lbs. 13 oz.
[2019-02-17] MEDS ORDERED: LACTATED RINGERS 1,000 ML IV SCH (17:15)
[2019-02-18] MEDS: SENNOSIDES-DOCUSATE SODIUM 1 EACH TAB PO SCH ×3 (04:42→19:58)
[2019-02-18 07:16] LABS: Anisocytosis Slight; Basophils % (A) 0 %; Eosinophils # (A) 0.1 k/uL (0-0.7); Eosinophils % (A) 1 %; HCT 22.6 % (34.0-46.0); Hypochromasia Marked; Lymphocytes # (A) 1.3 k/uL (1.0-4.8); Lymphocytes % (A) 14 %; MCHC 30.5 g/dL (31.0-37.0); MCV 71.9 fL (80.0-100.0); Mean Platelet Volume 6.8; Microcytosis Moderate; Monocytes # (A) 0.5 k/uL (0-1.0); Monocytes % (A) 5 %; Neutrophils # (A) 7.4 k/uL (1.3-7.7); Neutrophils % (A) 79 %; Platelet Count 218 k/uL (150-450); Poikilocytosis Slight; RBC 3.14 m/uL (3.80-5.40); RDW 16.7 % (11.5-15.5); WBC 9.3 k/uL (3.8-10.6)
[2019-02-18 07:30] LABS: HGB 6.9 gm/dL (11.4-16.0)
--- NOTE | 2019-02-18 07:47 | P.PN ---
Subjective Progress Note Date: 02/18/19 Principal diagnosis: Postoperative day #1 Slept well. Pain well controlled. Minimal to moderate lochia rubra. No complaints Objective - Vital Signs Vital signs: Vital Signs Temp 99.1 F 02/18/19 04:00 Pulse 128 H 02/18/19 04:00 Resp 36 H 02/18/19 04:00 BP 117/70 02/18/19 00:00 Pulse Ox 99 02/18/19 00:00 Intake & Output 02/17/19 02/18/19 02/18/19 18:59 06:59 18:59 Intake Total 1000 100 Output Total 700 500 Balance 300 -400 Intake: Intake, IV Titration 1000 Amount Lactated Ringers 1,000 ml 1000 @ 125 mls/hr IV .Q8H TIARRA Rx#:[id number] Oral 100 Output: Urine 500 Estimated Blood Loss 700 Other: Voiding Method Indwelling Catheter Indwelling Catheter # Voids 3 - Constitutional General appearance: Present: morbidly obese - EENT Eyes: Present: PERRLA ENT: Present: hearing grossly normal - Neck Thyroid: bilateral: normal size - Respiratory Respiratory: bilateral: CTA - Cardiovascular Rhythm: regular - Gastrointestinal General gastrointestinal: Present: normal bowel sounds - Genitourinary Genitourinary Comment(s): Incision clean and dry, intact, Steri-Strips applied. Fundus firm, midline, symmetric, 18 week size. - Integumentary Integumentary: Present: normal - Neurologic Neurologic: Present: CNII-XII intact - Musculoskeletal Musculoskeletal: Present: gait normal, strength equal bilaterally - Psychiatric Psychiatric: Present: A&O x's 3, appropriate affect, intact judgment & insight - Labs CBC & Chem 7: 02/18/19 06:25 Labs: Abnormal Lab Results - Last 24 Hours (Table) 02/18/19 Range/Units 06:25 RBC 3.14 L (3.80-5.40) m/uL Hgb 6.9 L* D (11.4-16.0) gm/dL Hct 22.6 L (34.0-46.0) % MCV 71.9 L (80.0-100.0) fL MCH 22.0 L (25.0-35.0) pg MCHC 30.5 L (31.0-37.0) g/dL RDW 16.7 H (11.5-15.5) % Assessment and Plan Assessment: Postoperative day #1. Doing well. Anemia noted. Asymptomatic. Plan: Begin ferrous sulfate twice daily. Continue postoperative care. Advanced diet and activity. Likely discharge home tomorrow. Time with Patient: Less than 30
[2019-02-18] MEDS: FERROUS SULFATE 325 MG TAB PO SCH ×2 (09:06→23:53)
[2019-02-18] MEDS: HYDROcodone/APAP 5-325MG 1 EACH TAB PO PRN (19:58)
--- NOTE | 2019-02-19 06:42 | P.PN ---
Progress Note - Text Progress Note Date: 02/19/19 38 old female status post section with Duramorph spinal postop day #1. Patient seen and examined with patient's. No motor sensory deficits. Tolerating diet well. VAS is between a 2-4-10 severity mostly in the abdomen along the incision. Patient is stable.
[2019-02-19 07:56] LABS: Anisocytosis Slight; Basophils % (A) 0 %; Eosinophils # (A) 0.2 k/uL (0-0.7); Eosinophils % (A) 2 %; Hypochromasia Marked; Lymphocytes # (A) 1.3 k/uL (1.0-4.8); Lymphocytes % (A) 13 %; MCHC 30.3 g/dL (31.0-37.0); MCV 72.5 fL (80.0-100.0); Mean Platelet Volume 7.9; Microcytosis Moderate; Monocytes # (A) 0.5 k/uL (0-1.0); Monocytes % (A) 5 %; Neutrophils # (A) 7.9 k/uL (1.3-7.7); Neutrophils % (A) 79 %; Platelet Count 244 k/uL (150-450); Poikilocytosis Slight; RBC 3.17 m/uL (3.80-5.40); RDW 17.3 % (11.5-15.5)
[2019-02-19] MEDS: SENNOSIDES-DOCUSATE SODIUM 1 EACH TAB PO SCH (08:00)
[2019-02-19] MEDS: FERROUS SULFATE 325 MG TAB PO SCH (08:00)
[2019-02-19] MEDS: HYDROcodone/APAP 5-325MG 1 EACH TAB PO PRN (08:00)
[2019-02-19 08:34] VITALS: BP 140/85; PULSE 82; RESP 17; TEMP 98.2
--- NOTE | 2019-02-19 11:29 | P.DS ---
Providers Date of admission: 02/17/19 06:14 Expected date of discharge: 02/19/19 Attending physician: Hayde Anglin Primary care physician: Stated None Hospital Course: This is a 38-year-old white female 5 para 0040 EDC 02/14/2019 at 40-3/7 weeks' gestation. Patient presented for induction for postdates . History is significant for maternal anxiety, positive MTHFR, IVF , obesity. Advanced maternal age. Please see admitting history and physical for details. Patient labored all day, Pitocin up to 26 milliunits. Arrest of dilatation was noted, along with meconium-stained fluid. heart tones were reassuring throughout the course of labor. Ultimately the decision was made to proceed with primary low transverse section. She gave to a liveborn female infant with scores of 8 and 9 at one and 5 minutes respectively. There was a nuchal cord 1, 3 vessel cord, was in the left occiput transverse position. Intraoperative findings also included pelvic adhesions and fibroid uterus. Please see my dictated delivery note for details. Infant weighed 7 lbs. 13 oz. or 3540 g. Postoperatively the patient did well. Hemoglobin 7.0, but vital signs stable and patient afebrile. She feels steady on her feet, strong, and ready for discharge home. Positive flatus. No issues with urination. Incision is clean and dry, intact, Steri-Strips applied. Fundus is firm and in the midline, symmetric and 18 week size. Lochia rubra is minimal with no large clot passage. [place] infant is doing well and has been cleared for discharge home. Patient will follow-up with me in the office in 2 weeks. She will use ferrous sulfate, 325 mg [id number], twice daily. She will continue taking her vitamin daily and use [id number] Motrin as needed for pain. I've asked her to call with any fevers shakes or chills, foul smelling or copious lochia, with any pain not alleviated by Motrin, with any questions concerns or other issues. She and her partner are contemplating options for contraception and we will discuss this again in the office. She has a breast pump at home. Baby has an appointment with emergency vehicle driver for Friday. Patient Condition at Discharge: Good Plan - Discharge Summary Discharge Rx Participant: No New Discharge Prescriptions: No Action Ergocalciferol [Vitamin D2] 50,000 unit PO FR Pnv No.95/Ferrous Fum/Folic AC [ Multivitamin Tablet] 1 tab PO DAILY Escitalopram [Lexapro] 1 tab PO DAILY Aspirin [Children's Aspirin] 1 tab PO ONCE Discharge Medication List Ergocalciferol [Vitamin D2] 50,000 unit PO FR 08/14/18 [History] Pnv No.95/Ferrous Fum/Folic AC [ Multivitamin Tablet] 1 tab PO DAILY 08/14/18 [History] Escitalopram [Lexapro] 1 tab PO DAILY 10/13/18 [History] Aspirin [Children's Aspirin] 1 tab PO ONCE 01/17/19 [History] Follow up Appointment(s)/Referral(s): Hayde Anglin MD [STAFF PHYSICIAN] - 2 Weeks
== END 2019-02-19 13:05 | disposition home or self-care (01) | DRG 787 ==
LOC: 4FBP 06:14
PROVIDERS: ADMIT Obstetrics & Gynecology; ATTEND Obstetrics & Gynecology
PROC: 3E033VJ Introduction of Other Hormone into Peripheral Vein, Percutaneous Approach (ICD-10-PCS; 2019-02-17)
PROC: 10D00Z1 Extraction of Products of Conception, Low, Open Approach (ICD-10-PCS; principal; 2019-02-17 06:00)
DX: O48.0 Post-term pregnancy (principal); E72.12 Methylenetetrahydrofolate reductase deficiency; O69.81X0 Labor and delivery complicated by cord around neck, without compression, not applicable or unspecified; E66.01 Morbid (severe) obesity due to excess calories; O99.214 Obesity complicating childbirth; O34.13 Maternal care for benign tumor of corpus uteri, third trimester; D25.9 Leiomyoma of uterus, unspecified; O99.344 Other mental disorders complicating childbirth; O99.284 Endocrine, nutritional and metabolic diseases complicating childbirth; O77.0 Labor and delivery complicated by meconium in amniotic fluid; O99.02 Anemia complicating childbirth; D64.9 Anemia, unspecified; O62.0 Primary inadequate contractions; F41.9 Anxiety disorder, unspecified; O99.52 Diseases of the respiratory system complicating childbirth; J45.909 Unspecified asthma, uncomplicated; O99.844 Bariatric surgery status complicating childbirth; Z37.0 Single live birth; Z3A.40 40 weeks gestation of pregnancy; Z79.82 Long term (current) use of aspirin; Z79.899 Other long term (current) drug therapy; Z98.82 Breast implant status; Z87.442 Personal history of urinary calculi; Z83.3 Family history of diabetes mellitus
CPT/HCPCS: 85025; 86850; 86900; 86901; 88307

== ENCOUNTER → 2020-05-22 | Outpatient (CLI) | payer BC ==
--- NOTE | 2020-05-22 14:40 | MM ---
Reason for exam: screening (asymptomatic). Baseline mammogram. History: Patient had first child at age 38. Retro-pectoral saline implants in both breasts, 2008. Took hormonal contraceptives for 10 years beginning at age 18. Took progesterone for 3 months beginning at age 37. Physical Findings: Nurse did not find any significant physical abnormalities on exam. MG 3D Screen Mammo Imp/Cad Bilateral CC and MLO view(s) were taken. There are scattered fibroglandular densities. Left breast implant. Right breast implant not seen. These results were verbally communicated with the patient and result sheet given to the patient on 05/22/20. ASSESSMENT: Benign, BI-RAD 2 RECOMMENDATION: Routine screening mammogram of both breasts in 1 year.
== END | disposition home or self-care (01) ==
LOC: RADMAMWWP 12:24
PROVIDERS: ATTEND Family Medicine
DX: Z12.31 Encounter for screening mammogram for malignant neoplasm of breast (principal)
CPT/HCPCS: 77063; 77067

== ENCOUNTER 2022-11-30 17:43 | Emergency (ER) | payer BC ==
[2022-11-30] MEDS ORDERED: KETOROLAC 15 MG/ML 1 ML VIAL IVP STA (18:02)
[2022-11-30] MEDS ORDERED: ONDANSETRON 4 MG/2 ML VIAL IVP STA (18:02)
[2022-11-30] MEDS ORDERED: DEXAMETHASONE SOD PHOSPHATE 10 MG/ML 1 ML VIAL IVP STA ×2 (18:02→18:14)
[2022-11-30] MEDS ORDERED: SODIUM CHLORIDE 0.9% 1,000 ML IV STA (18:02)
[2022-11-30] MEDS ORDERED: diphenhydrAMINE 50 MG/ML 1 ML VIAL IVP STA (18:02)
--- NOTE | 2022-11-30 18:24 | CT ---
EXAMINATION TYPE: CT brain wo con CT DLP: 1134.4 mGycm, Automated exposure control for dose reduction was used. DATE OF EXAM: 11/30/2022 6:16 PM COMPARISON: None. CLINICAL INDICATION:Female, 42 years old with history of headache, Headache at base of skull. No inju ry. Difficulty rotating head. TECHNIQUE: Brain: Multiple axial CT images of the brain were obtained without IV contrast. Coronal and sagittal reformats reviewed. FINDINGS: Brain: Extra-axial spaces: No abnormal extra-axial fluid collections. Ventricular system: Within normal limits Cerebral parenchyma: No acute intraparenchymal hemorrhage or mass effect. The thomas-white junction is well differentiated. Cerebellum: Unremarkable. Mass effect: No evidence of midline shift. Intracranial vasculature: unremarkable Soft tissues: Several scalp soft tissue nodules identified. The largest is within the frontal midline scalp measuring 1.8 cm with dystrophic calcification. Calvarium/osseous structures: No depressed skull fracture. Paranasal sinuses and mastoid air cells: Clear Visualized orbits: Orbital contents are intact. IMPRESSION: 1. No acute intracranial process. 2. Several scalp soft tissue nodules. Likely benign pilar cysts.
[2022-11-30] MEDS ORDERED: HYDROmorphone 0.5 MG/0.5 ML SYRINGE IVP STA (19:17)
[2022-11-30 20:07] VITALS: RESP 16
[2022-11-30] MEDS ORDERED: ACET/COD 300 MG/30 MG STARTER PACK 6 TAB BTL PO STA (20:21)
--- NOTE | 2022-11-30 20:22 | ED ---
Headache HPI - General Chief Complaint: Headache Stated Complaint: pain base of skull Time Seen by Provider: 11/30/22 17:50 Mode of arrival: ambulatory Limitations: no limitations - History of Present Illness Initial Comments: Patient is a 42-year-old female who presents the emergency department for headache. Patient has had persistent headache throughout the week ranging from moderate to severe. Pain is at the base of skull radiating into the neck. Pain refractory to [id number] medications. She denies injury or recent fall. Denies numbness and tingling. Denies weakness. Denies fever, upper respiratory symptoms. No chest pain or shortness of breath - Related Data Home Medications Medication Instructions Recorded Confirmed Ergocalciferol [Vitamin D2] 50,000 unit PO FR 08/14/18 02/17/19 Pnv No.95/Ferrous Fum/Folic AC 1 tab PO DAILY 08/14/18 02/17/19 [ Multivitamin Tablet] Escitalopram [Lexapro] 1 tab PO DAILY 10/13/18 02/17/19 Aspirin [Children's Aspirin] 1 tab PO ONCE 01/17/19 02/17/19 Allergies Allergy/AdvReac Type Severity Reaction Status Date / Time No Known Allergies Allergy Verified 11/30/22 17:49 Review of Systems ROS Statement: Those systems with pertinent positive or pertinent negative responses have been documented in the HPI. ROS Other: All systems not noted in ROS Statement are negative. Past Medical History Past Medical History: Asthma Additional Past Medical History / Comment(s): kidney stones History of Any Multi-Drug Resistant Organisms: None Reported Past Surgical History: Breast Surgery, Tonsillectomy Additional Past Surgical History / Comment(s): breast implants, abdominoplasty Past Anesthesia/Blood Transfusion Reactions: No Reported Reaction Past Psychological History: No Psychological Hx Reported Smoking Status: Never smoker Past Alcohol Use History: None Reported Past Drug Use History: None Reported - Past Family History Father Family Medical History: Diabetes Mellitus General Exam Limitations: no limitations General appearance: alert Head exam: Present: atraumatic, normocephalic, normal inspection Eye exam: Present: normal appearance, PERRL, EOMI. Absent: scleral icterus, conjunctival injection, periorbital swelling ENT exam: Present: normal oropharynx, TM's normal bilaterally Neck exam: Present: normal inspection, full ROM. Absent: tenderness, meningismus, lymphadenopathy Respiratory exam: Present: normal lung sounds bilaterally. Absent: respiratory distress, wheezes, rales, rhonchi, stridor Cardiovascular Exam: Present: regular rate, normal rhythm, normal heart sounds. Absent: systolic murmur, diastolic murmur, rubs, gallop, clicks Neurological exam: Present: alert Expanded Sensory exam: Upper Extremity Light Touch: Normal, Lower Extremity Light Touch: Normal Motor strength exam: RUE: 5, LUE: 5, RLE: 5, LLE: 5 Psychiatric exam: Present: normal affect, normal mood Skin exam: Present: warm, dry, intact, normal color. Absent: rash Course Vital Signs 11/30/22 11/30/22 11/30/22 17:45 17:57 20:05 Temperature 98.3 F Pulse Rate 80 68 71 Respiratory 20 20 16 Rate Blood Pressure 138/83 132/95 129/71 O2 Sat by Pulse 100 98 99 Oximetry 11/30/22 20:38 Temperature 98.4 F Pulse Rate 69 Respiratory 16 Rate Blood Pressure 129/78 O2 Sat by Pulse 98 Oximetry Medical Decision Making - Medical Decision Making Was pt. sent in by a medical professional or institution (, PA, [employer], urgent care, hospital, or half-way...) When possible be specific @ -No Did you speak to anyone other than the patient for history (EMS, parent, family, police, friend...)? What history was obtained from this source @ -No Did you review nursing and triage notes (agree or disagree)? Why? @ -I reviewed and agree with nursing and triage notes Were old charts reviewed (outside hosp., previous admission, EMS record, old EKG, old radiological studies, urgent care reports/EKG's, half-way records)? Report findings @ -No old charts were reviewed Differential Diagnosis (chest pain, altered mental status, abdominal pain women, abdominal pain men, vaginal bleeding, weakness, fever, dyspnea, syncope, headache, dizziness, GI bleed, back pain, seizure, CVA, palpatations, mental health)? @ -not applicable EKG interpreted by me (3pts min.). @ -As above X-rays interpreted by me (1pt min.). @ -None done CT interpreted by me (1pt min.). @ -No acute intracranial process. Several scalp soft tissue nodules likely benign pilar cysts U/S interpreted by me (1pt. min.). @ -None done What testing was considered but not performed or refused? (CT, X-rays, U/S, labs)? Why? @ -None What meds were considered but not given or refused? Why? @ -None Did you discuss the management of the patient with other professionals (professionals i.e. , PA, [employer], lab, RT, psych nurse, social sciences research scientist, electric lineman, teacher, loan workout officer, correctional casework specialist)? Give summary @ -No Was smoking cessation discussed for >3mins.? @ -No Was critical care preformed (if so, how long)? @ -No Were there social determinants of health that impacted care today? How? (Homelessness, low income, unemployed, alcoholism, drug addiction, transportati on, low edu. Level, literacy, decrease access to med. care, shelter, rehab)? @ -No Was there de-escalation of care discussed even if they declined (Discuss DNR or withdrawal of care, Hospice)? DNR status @ -No What co-morbidities impacted this encounter? (DM, HTN, Smoking, COPD, CAD, Cancer, CVA, ARF, Chemo, Hep., AIDS, mental health diagnosis, sleep apnea, morbid obesity)? @ -None Was patient admitted / discharged? Hospital course, mention meds given and route, prescriptions, significant lab abnormalities, going to OR and other pertinent info. @Patient presenting for headache. No neurological deficit. Due to severe persistent headache CT of the brain was obtained it was interpreted by myself showing no acute intracranial process. Several scalp soft tissue nodules were noted likely benign pilar cysts. Patient given migraine cocktail with little improvement. She was then given 1 dose of Dilaudid which improved pain. Results discussed with patient. Patient stable medical condition for discharge. She will follow up with primary care provider. Return parameters discussed Undiagnosed new problem with uncertain prognosis? @ -No Drug Therapy requiring intensive monitoring for toxicity (Heparin, Nitro, Insulin, Cardizem)? @ -No Were any procedures done? @ -No Diagnosis/symptom? @ -Headache Acute, or Chronic, or Acute on Chronic? @Acute Uncomplicated (without systemic symptoms) or Complicated (systemic symptoms)? @ - uncomplicated Side effects of treatment? @ -No Exacerbation, Progression, or Severe Exacerbation? @ -No Poses a threat to life or bodily function? How? (Chest pain, USA, PA, pneumonia, PE, COPD, DKA, ARF, appy, cholecystitis, CVA, Diverticulitis, Homicidal, Suicidal, threat to staff... and all critical care pts) @ -[No Dr. Saravia is my attending Disposition Clinical Impression: Headache Disposition: HOME SELF-CARE Condition: Good Instructions (If sedation given, give patient instructions): Acute Headache (ED) Additional Instructions: alternate Tylenol and Motrin every 3-4 hours for pain. States Tylenol 3 for severe pain. Do not drink alcohol or operate machinery while taking Tylenol 3. Follow up with primary care provider in one to 2 days. Return to the emergency department if you experience new, concerning, or worsening symptoms Is patient prescribed a controlled substance at d/c from ED?: No Referrals: Elmer Cohen MD [Primary Care Provider] - 1-2 days
[2022-11-30 20:39] VITALS: BP 129/78; PULSE 69; TEMP 98.4
== END 2022-11-30 20:41 | disposition home or self-care (01) ==
LOC: EC 17:43
DX: R51.9 Headache, unspecified (principal); J45.909 Unspecified asthma, uncomplicated; Z79.82 Long term (current) use of aspirin
CPT/HCPCS: 70450; 99284; 96374; 96375 ×4; 96361 ×2; J1200; J1100; J2405; J1885; J1170

== ENCOUNTER 2023-01-03 07:49 | Day surgery (SDC) | payer BC ==
[2023-01-03 09:18] VITALS: TEMP 98.1
[2023-01-03 10:46] VITALS: RESP 16
[2023-01-03 12:03] LABS: Glucose,CSF 51 mg/dL (40-70); Total Protein,CSF 42 mg/dL (12-60)
--- NOTE | 2023-01-03 12:29 | FL ---
PROCEDURE: FL Lumbar puncture. DATE: 01/03/2023 CLINICAL HISTORY: 42-year-old female R29.1, M54.2, R42 dizziness COMPLICATIONS: None SEDATION: Administered by radiology nursing personnel. The patient and the patient's vital signs were monitore d by qualified independent radiology personnel. TECHNIQUE: The procedure and potential risks were explained to patient and an informed consent was obtained with teach back. Site and side was verified. A time out was performed. The patient was placed prone on the fluoroscopy table and the L3-L4 level was localized and the skin was marked and was prepped and draped in the usual sterile fashion. Lidocaine was used for local anesthesia. Utilizing fluoroscopic guidance a 6 inch 20-gauge spinal nee dle was placed through the skin and into the subarachnoid space. Opening pressure was measured at 11.5 cm H2O. Approximately 9 mL of clear, colorless cerebral spinal fluid was obtained. The patient tolerated the procedure well and was sent back to recovery room in satisfactory condition . The fluid was sent to the lab for analysis. The estimated blood loss was minimal. The patient's condition was unchanged following the procedure. Fluoroscopy time: 12 seconds Total images: 1. Total DAP: 5 mGycm2. IMPRESSION: Successful accumulation of 9 ml of clear CSF. Opening pressure was 11.5 cm H20.
[2023-01-03 14:56] VITALS: BP 126/71; PULSE 68
[2023-01-03 16:34] LABS: Appearance,CSF Clear; CSF Tube Number 4; CSF Tube Volume 3.3; Nucleated Cells, CSF 3 u/L (0-5); Red Blood Cell,CSF 9 u/L (0-10)
== END 2023-01-03 14:48 | disposition home or self-care (01) ==
LOC: RADPROMAIN 07:49
PROVIDERS: ATTEND Family Medicine
DX: M54.2 Cervicalgia (principal)
CPT/HCPCS: 84157; 82945; 89050; 87070; 87205; 62328; J2001

== ENCOUNTER → 2023-01-06 | Outpatient (CLI) | payer BC ==
--- NOTE | 2023-01-06 15:42 | MM ---
Reason for Exam: Clinical finding. Last screening mammogram was performed 7 month(s) ago. Indicated Problems: Pain of the right side (Focal) for 2 Month(s) : 6 oclock. Patient History: Menarche at age 7. First Full-Term at age 38. Late child-bearing (after 30). Progesterone for 3 months from age 37 until age 37. Hormonal Contraceptives for 10 years from age 18 until age 28. 06/29/2021, Bilateral Implant Removal. 2008, Bilateral Implants. Paternal cousin had ovarian cancer under age 50. Risk Values: Rosemary 5 year model risk: 1.2%. NCI Lifetime model risk: 14.3%. Prior Study Comparison: 05/22/2020 Bilateral Screening Mammogram, [facility]. 06/05/2022 Bilateral MG screening mammo w CAD, [facility]. Tissue Density: Right: There are scattered fibroglandular densities. Findings: Analyzed By CAD. No suspicious mass identified. Interval removal of right breast prosthesis. No architectural distortion. Benign calcification noted. No suspicious group of calcifications. Overall Assessment: Incomplete: need additional imaging evaluation, BI-RAD 0 Management: Diagnostic Breast Ultrasound of the right breast. A clinical breast exam by your physician is recommended on an annual basis and results should be correlated with mammographic findings. This exam should not preclude additional follow-up of suspicious palpable abnormalities. Results were given to the patient verbally at the time of exam. Note on Rosemary scores and lifetime risk: 1. A Rosemary score greater than 3% is considered moderate risk. If this is the case, consider specialist referral to assess eligibility for a risk reducing agent. If overall lifetime risk for the development of breast cancer is 20% or higher, the patient may qualify for future screening with alternating mammogram and breast MRI. Electronically signed and approved by: Anselmo Roger D.O.
--- NOTE | 2023-01-06 16:08 | USB ---
Reason for Exam: Clinical finding. Patient History: Menarche at age 7. First Full-Term at age 38. Late child-bearing (after 30). Progesterone for 3 months from age 37 until age 37. Hormonal Contraceptives for 10 years from age 18 until age 28. 06/29/2021, Bilateral Implant Removal. 2008, Bilateral Implants. Paternal cousin had ovarian cancer under age 50. Risk Values: Rosemary 5 year model risk: 1.2%. NCI Lifetime model risk: 14.3%. Technique: Method: Targeted. Prior Study Comparison: 05/22/2020 Bilateral Screening Mammogram, [facility]. 06/05/2022 Bilateral MG screening mammo w CAD, [facility]. Findings: Targeted ultrasound of the right breast demonstrates a small likely seroma in the patient's region of scar measuring 5 x 4 x 3 mm without internal color flow at 7:00 5 cm from the nipple. There is posterior acoustic enhancement identified. There is an irregular heterogenous mass within the right breast at 8:00 9 cm from the nipple. There are angular margins without internal color flow. No posterior acoustic features. Ultrasound-guided biopsy is recommended of the 8:00 mass. May be difficult due to how posterior the mass is. Overall Assessment: Suspicious, BI-RAD 4 Management: Ultrasound Core Biopsy of the right breast. A clinical breast exam by your physician is recommended on an annual basis and results should be correlated with mammographic findings. This exam should not preclude additional follow-up of suspicious palpable abnormalities. Results were given to the patient verbally at the time of exam. Electronically signed and approved by: Anselmo Roger D.O.
== END | disposition home or self-care (01) ==
LOC: RADUSWWP 15:13
PROVIDERS: ATTEND Obstetrics & Gynecology
DX: N64.4 Mastodynia (principal); N63.0 Unspecified lump in unspecified breast
CPT/HCPCS: 77061; 77065

== ENCOUNTER → 2023-01-14 | Day surgery (SDC) | payer BC ==
--- NOTE | 2023-01-17 13:59 | MM ---
Reason for Exam: Additional evaluation requested from prior study. Last screening mammogram was performed 7 month(s) ago. Patient History: Menarche at age 7. First Full-Term at age 38. Late child-bearing (after 30). Progesterone for 3 months from age 37 until age 37. Hormonal Contraceptives for 10 years from age 18 until age 28. 06/29/2021, Bilateral Implant Removal. 2008, Bilateral Implants. Paternal cousin had ovarian cancer under age 50. Risk Values: Rosemary 5 year model risk: 1.2%. NCI Lifetime model risk: 14.3%. Prior Study Comparison: 05/22/2020 Bilateral Screening Mammogram, [facility]. 06/05/2022 Bilateral MG screening mammo w CAD, [facility]. 01/06/2023 Right MG 3D diag mammo w/cad RT, [facility]. Tissue Density: Right: There are scattered fibroglandular densities. Pathology Description: Location: 8 o'clock. Marker Left Behind. Cores: 10 Skin Nicks: 1 Gauge: 13 The procedure of ultrasound guided core biopsy was explained to the patient. Benefits, alternatives, and risks were discussed. An informed consent was then obtained. A timeout was performed. The patient was placed in supine positioning for imaging and for the procedure. The overlying skin was prepped and draped in usual sterile fashion. Lidocaine was used as anesthetic into the skin and subcutaneous tissue up to area of concern in the right breast. A small skin devyn was made with surgical scalpel. Under ultrasound guidance, a 12-gauge vacuum assisted biopsy gun device was used to obtain 10 core samples. A biopsy clip was left in lesion. Hydromark core marker was placed. Biopsy was difficult due to position. Close correlation for concordance is recommended. The patient tolerated the procedure well without any immediate complication. The patient was kept in the radiology department for short stay after the procedure and then discharged home in stable condition. Postprocedure mammogram: The patient was transferred to mammography for physician ordered post procedure mammogram for clip placement verification. Impression: Successful ultrasound guided core biopsy of area of concern in the right breast, full pathology results to follow. Recommendations: 1. Recommendations are pending pathology results. Pathology Results: Result: Benign. RIGHT BREAST, EIGHT O'CLOCK, ULTRASOUND GUIDED NEEDLE CORE BIOPSY: Benign breast tissue with fibrosis/scar. Overall Assessment: Benign Assessment: MG diagnostic mammo RT wo CAD - Right: Benign, BI-RAD 2. Management: Diagnostic Breast Ultrasound of the right breast in 6 months. Electronically signed and approved by: Pavel Ruffin D.O. Radiologis
== END ==
LOC: RADUSWWP 12:30
PROVIDERS: ATTEND Surgery
DX: N60.31 Fibrosclerosis of right breast (principal)
CPT/HCPCS: 88305; 77065; 19083; A4648

== ENCOUNTER → 2023-01-31 | Outpatient (CLI) | payer BC ==
[2023-01-31 13:00] VITALS: BP 111/77; PULSE 79; RESP 16; TEMP 98.3
--- NOTE | 2023-01-31 13:03 | P.GSHP ---
History of Present Illness H&P Date: 01/31/23 Chief Complaint: Abnormal right breast ultrasound Raeann is a 42-year-old white female status post right breast ultrasound- guided core biopsy on [id number]. This revealed benign breast tissue with fibrosis/scar. This started with a bilateral mammogram on 06-05-22 which was BIRADS 1. She subsequently underwent a right breast diagnostic mammogram on and a right breast ultrasound on the same date. These were felt to be BIRADS 4. This revealed a targeted ultrasound of the right breast showing a small seroma in the patient's region of scar and a irregular heterogeneous mass within the right breast at 8:00 for which core biopsy was recommended. The patient states that in October she started having pain in her right breast. She therefore had additional radiagraphic evaluation. The patient has lateral breast augmentation in the past followed by bilateral implant removal in 2020. They were removed secondary to right breast implant rupture. Patient has not felt any lumps masses or nodules of concern in either breast. She states that she has begun wearing a sports bra after the core biopsy procedure and when she wears to block the pain seems to have abated. The initial pain was in the lateral aspect of the right breast. The pain was not related to her period. The pain is sharp, it does not spread. It was constant, but it has stopped after the biopsy. Since that time she has a new pain which is at the nipple area it is fleeting in nature and it is sharp it does not spread. It occurs daily, several times. Of importance is the fact that the patient had bilateral implant removal in 2008. She has not had any recent trauma or infection in her breast. She has not had any other breast surgeries. Caffeine: 1 cup coffee/day nicotine: none chocolate: occasional BCP: 20 years ago for several years Family History: cousin paternal: ovarian cancer maternal grandfather: prostate cancer Hormonal History: menarche: 7 M4 breast fed: yes, age at first : 38 periods regular: LMP: 1 month ago Surgical history: gastric bypass abdominoplasty breast augumentation removal of breast implants brachoplasty tonsil Medical History: none C2-C4 inflamed asthma Social history: Nicotine: Negative alcohol: none drugs: none - Constitutional Constitutional: Denies chills, Denies fever - EENT Eyes: denies blurred vision, denies pain Ears: deny: decreased hearing, tinnitus Ears, nose, mouth and throat: Denies headache, Denies sore throat - Breasts Breasts: bilateral: as per HPI - Cardiovascular Cardiovascular: Denies chest pain, Denies shortness of breath - Respiratory Respiratory: Denies cough, Denies 7 - Gastrointestinal Gastrointestinal: Denies abdominal pain, Denies diarrhea, Denies nausea, Denies vomiting - Genitourinary (Female) Genitourinary: Denies dysuria, Denies hematuria - Menstruation Menstruation: Reports period normal - Musculoskeletal Musculoskeletal: Denies myalgias - Integumentary Integumentary: Denies pruritus, Denies rash - Neurological Neurological: Reports as per HPI, Reports numbness - Psychiatric Psychiatric: Reports anxiety - Endocrine Endocrine: Denies fatigue, Denies weight change - Hematologic/Lymphatic Comment: none - Allergic/Immunologic Allergic/Immunologic: Reports seasonal allergies Past Medical History Past Medical History: Asthma Additional Past Medical History / Comment(s): kidney stones History of Any Multi-Drug Resistant Organisms: None Reported Past Surgical History: Breast Surgery, Tonsillectomy Additional Past Surgical History / Comment(s): breast implants, abdominoplasty Past Anesthesia/Blood Transfusion Reactions: No Reported Reaction Past Psychological History: No Psychological Hx Reported, Anxiety Smoking Status: Never smoker Past Alcohol Use History: None Reported Past Drug Use History: None Reported - Past Family History Father Family Medical History: Diabetes Mellitus Medications and Allergies Home Medications Medication Instructions Recorded Confirmed Type PARoxetine HCL [Paxil] 20 mg PO DAILY 12/24/22 01/07/23 History Semaglutide [Wegovy] 1.7 mg SQ WEEKLY 12/24/22 01/07/23 History Topiramate [Topamax] 25 mg PO DAILY 12/24/22 01/07/23 History buPROPion HCL [buPROPion HCL SR] 150 mg PO DAILY 12/24/22 01/07/23 History Allergies Allergy/AdvReac Type Severity Reaction Status Date / Time No Known Allergies Allergy Verified 01/07/23 11:49 Surgical - Exam - General no distress - Eyes normal ocular movement - ENT no hearing loss - Neck trachea midline - Respiratory normal respiratory effort, clear to auscultation - Cardiovascular Rhythm: regular Heart Sounds: normal: S1, S2 - Abdomen Abdomen: soft, non tender, no guarding, no rigid, no rebound - Integumentary normal turgor - Neurologic no disoriented, no combative - Musculoskeletal normal gait - Psychiatric oriented to time, oriented to person, oriented to place, speech is normal, memory intact Breast Exam: BRA: 44C Inspection: Bilateral scars from reduction mammoplasty with grade 1 ptosis Palpation: Right breast: Multiple positional exam fibrocystic changes no dominant masses or nodules of concern Right axilla: No adenopathy of concern Left breast: Well-healed scars from prior surgery, tattoo in the supra areolar area no dominant masses or nodules of concern Left axilla: No adenopathy of concern Results Radiographic changes personally reviewed with Dr. Ruffin he feels that he biopsied the area of concern in that it is benign and concordant Assessment and Plan Assessment: Impression: Intermittent right breast pain most likely related to scar tissue Fibrocystic breast changes Plan: Repeat bilateral mammogram in 6 months with a right breast ultrasound and physician exam at that time Patient to follow up sooner any questions or concerns We'll discuss lifestyle modifications/stopping the caffeine She is given a book on breast pain CC: Dr. Dr. Pereyra
== END ==
LOC: WWCWWP 11:55
PROVIDERS: ATTEND Surgery
DX: N60.11 Diffuse cystic mastopathy of right breast (principal); N64.4 Mastodynia; N64.89 Other specified disorders of breast; J45.909 Unspecified asthma, uncomplicated; Z87.442 Personal history of urinary calculi

== ENCOUNTER → 2023-06-12 | Outpatient (CLI) | payer BC ==
[2023-06-12 18:58] LABS: C Reactive Protein <0.30 mg/dL (0.00-0.80); Creatine Kinase 61 U/L (26-186)
== END | disposition home or self-care (01) ==
LOC: LABWHC1 10:52
PROVIDERS: ATTEND Physician Assistant
DX: M43.6 Torticollis (principal); R41.89 Other symptoms and signs involving cognitive functions and awareness
CPT/HCPCS: 36415; 82085; 82550; 85652; 86140

== ENCOUNTER → 2023-08-12 | Outpatient (CLI) | payer BC ==
--- NOTE | 2023-08-12 15:17 | USB ---
Reason for Exam: Follow-up at short interval from prior study. Patient History: Menarche at age 7. First Full-Term at age 38. Late child-bearing (after 30). Progesterone for 3 months from age 37 until age 37. Hormonal Contraceptives for 10 years from age 18 until age 28. 01/14/2023, Benign US biopsy breast VAD RT on the right side. 06/29/2021, Bilateral Implant Removal. 2008, Bilateral Implants. Paternal cousin had ovarian cancer under age 50. Risk Values: Rosemary 5 year model risk: 2.0%. NCI Lifetime model risk: 16.9%. Technique: Method: Targeted. Prior Study Comparison: 06/05/2022 Bilateral MG screening mammo w CAD, [facility]. 01/06/2023 Right MG 3D diag mammo w/cad RT, [facility]. 01/14/2023 Right MG diagnostic mammo RT wo CAD, [facility]. Findings: The lateral section of the breast of the right breast was scanned. Targeted ultrasound right breast 8:00 position at the site of previous biopsy shows residual 6 mm hypoechoic area corresponding to the site of previous 10 mm area that was biopsied. Adjacent microclip. No other solid or cystic lesion. Overall Assessment: Benign, BI-RAD 2 Management: Screening Mammogram of both breasts in 1 day. Patient is due now for her annual exam. A clinical breast exam by your physician is recommended on an annual basis and results should be correlated with mammographic findings. This exam should not preclude additional follow-up of suspicious palpable abnormalities. Results were given to the patient verbally at the time of exam. Electronically signed and approved by: González Harris M.D. Radiologist
== END | disposition home or self-care (01) ==
LOC: RADUSWWP 14:23
PROVIDERS: ATTEND Family Medicine
DX: R92.8 Other abnormal and inconclusive findings on diagnostic imaging of breast (principal); R41.89 Other symptoms and signs involving cognitive functions and awareness; M43.6 Torticollis; R68.89 Other general symptoms and signs; R42 Dizziness and giddiness
CPT/HCPCS: 86618

== ENCOUNTER → 2023-08-12 | Outpatient (CLI) | payer BC ==
--- NOTE | 2023-08-13 10:03 | CT ---
EXAMINATION TYPE: CT soft tissue neck wo/w con DATE OF EXAM: 08/12/2023 COMPARISON: None HISTORY: ongoing neck pain c2-c4 and swelling within neck/ throat CT DLP: 1063 mGycm CONTRAST: CT scan of the neck is performed without and with IV Contrast, patient injected with 100ml mL of Isov ue 300. Contrast enhanced CT of the neck was performed from the skull base through the lung apices. AIRWAY: The supraglottic, glottic, and subglottic portions of the airway appear patent and free of mass. SALIVARY GLANDS: The submandibular and parotid glands are free of mass or inflammatory process. THYROID GLAND: No nodules or masses seen. LYMPH NODES: No adenopathy seen greater than 1cm. LUNG APICES: No nodule or mass is seen. OTHER: There is a calcified subcutaneous nodule left sided retro auricular region measuring 1.5 x 1. 6 x 1.0 cm and is of uncertain etiology. Could reflect partially calcified lymph node. Vascular struc tures are patent. Mild degenerative disc space narrowing and spondylosis at C5 through C6-7. No absce ss seen. IMPRESSION: 1.There is a calcified subcutaneous nodule left sided retro auricular region measuring 1.5 x 1.6 x 1. 0 cm and is of uncertain etiology. Could reflect partially calcified lymph node.
== END | disposition home or self-care (01) ==
LOC: RADCTMAIN 15:40
PROVIDERS: ATTEND Psychiatry & Neurology Neurology
DX: R22.1 Localized swelling, mass and lump, neck (principal); R13.10 Dysphagia, unspecified
CPT/HCPCS: 70492; Q9967

== ENCOUNTER → 2023-11-03 | Outpatient (CLI) | payer BC ==
--- NOTE | 2023-12-09 12:35 | FL ---
Exam Date: 12/09/2023 8:13 AM. Modified barium swallow for dysphagia. Consistencies administered: Various consistency of barium. Fluoro time: 1.12MINS No images were sent to PACS. Please see speech pathology report. DAP: No dap mGym2 Gycm2
== END | disposition home or self-care (01) ==
LOC: RADFLMAIN 11:10
PROVIDERS: ATTEND Otolaryngology
DX: R13.13 Dysphagia, pharyngeal phase (principal)
CPT/HCPCS: 74230

== ENCOUNTER 2023-11-04 12:00 | Day surgery (SDC) | payer BC ==
[2023-11-04] MEDS ORDERED: LACTATED RINGERS 1,000 ML BAG ONE (13:00)
[2023-11-04] MEDS ORDERED: LIDOCAINE 1% INJ 10MG/ML (20 ML MDV) ONE (13:34)
[2023-11-04] MEDS ORDERED: PROPOFOL 10 MG/ML 20 ML VIAL IV ONE (13:34)
--- NOTE | 2023-11-28 07:03 | P.PCN ---
Date of Procedure: 11/04/23 Procedure(s) Performed: This is an addendum to the procedure that was performed on 11/04/2023. Procedure performed colonoscopy with snare polypectomy Procedure: Thrombus colonoscopy was inserted the rectum and gradually advanced into the cecum. Careful examination was performed and the scope was gradually being withdrawn. There was an 8 mm sigmoid colon polyp that was removed by cold snare polypectomy.
== END 2023-11-04 14:00 | disposition home or self-care (01) ==
LOC: ORWHC2ENDO 12:00
PROVIDERS: ATTEND Internal Medicine Gastroenterology
DX: Z12.11 Encounter for screening for malignant neoplasm of colon (principal); K63.5 Polyp of colon; F32.A Depression, unspecified; Z98.84 Bariatric surgery status; Z79.85 Long-term (current) use of injectable non-insulin antidiabetic drugs; Z79.899 Other long term (current) drug therapy
CPT/HCPCS: 45385; 81025